=== PATIENT | male | born 1960 | race Caucasian/White ===

== ENCOUNTER 2020-03-13 18:49 | Emergency (ER) | payer BC ==
[~2020-03-13 18:49] MED LIST: Iopamidol 370 76% 100 ML VIAL ONE
[2020-03-13] MEDS ORDERED: Ketorolac Tromethamine 30 MG/ML VIAL ONE (19:04)
[2020-03-13 19:20] LABS: #Basophils 0.1 thou/uL (0.0-0.2); #Eosinphils 0.1 thou/uL (0.0-0.7); #Lymphocytes 4.3 thou/uL (1.20-3.40); #Monocytes 0.9 thou/uL (0.11-0.59); #Neutrophils 3.8 thou/uL (1.40-6.50); %Basophils 1.5 % (0.0-1.0); %Eosinophils 1.2 % (0.0-10.0); %Lymphocytes 46.5 % (21.0-51.0); %Monocytes 9.5 % (0.0-10.0); %Neutrophils 41.3 % (42.0-75.0); Hemoglobin 14.4 g/dL (14.0-18.0); Mean Corpuscular Hemoglobin 36.1 pg (27.0-31.0); Mean Platelet Volume 7.3 fL (7.4-10.4); Platelet Count 186 thou/uL (130-400); RBC Distribution Width 11.6 % (11.5-14.5); White Blood Cell (WBC) Count 9.2 thou/uL (4.8-10.8)
[2020-03-13 19:31] LABS: ALT (SGPT) 36 U/L (8-55); AST (SGOT) 27 U/L (5-34); Albumin 4.3 g/dL (3.5-5.0); Alkaline Phosphatase 44 U/L (40-110); Anion Gap 14 mmol/L (10-20); BUN (Urea Nitrogen) 18 mg/dL (8.4-25.7); Bilirubin, Total 0.4 mg/dL (0.2-1.2); Calc. Creatinine Clearance 0 mL/min (70-130); Calcium 8.3 mg/dL (7.8-10.44); Carbon Dioxide 25 mmol/L (22-29); Chloride 108 mmol/L (98-107); Estimated GFR-MDRD 62; Glucose 90 mg/dL (70-105); Potassium 3.9 mmol/L (3.5-5.1); Protein, Total 7.3 g/dL (6.0-8.3); Sodium 143 mmol/L (136-145)
[2020-03-13 19:39] LABS: MDiff Complete? YES; Macrocytosis SLIGHT = 6-15 cells (100X) (0-5/hpf); Platelet Morphology Comment Appears Adequate
[2020-03-13 20:25] LABS: Bilirubin Negative (Negative); Blood, Urine Large (Negative); Clarity Clear (Clear); Glucose, Urine (Dipstick) Negative (Negative); Ketone, Urine Negative (Negative); Leukocyte Negative (Negative); Nitrite Negative (Negative); Protein, Urine (Dipstick) Trace mg/dL (Neg-Trace); Urobilinogen 0.2 mg/dL (Less than 2); pH, Urine 5.5 (5.0-9.0)
[2020-03-13 20:27] LABS: Specific Gravity, Urine 1.035 (1.002-1.036)
[2020-03-13 20:30] LABS: Bacteria/HPF 1+ HPF (None Seen); Squamous Epithelial None Seen HPF (0-3); WBC/HPF 0-3 HPF (0-3)
--- NOTE | 2020-03-13 21:00 | CT ---
CT ABDOMEN AND PELVIS WITH AND WITHOUT CONTRAST: Date: 03-13-[address] of the abdomen and pelvis was performed for evaluation of flank pain. FINDINGS: Bilateral nonobstructing renal calculi are present, but in particular, there is a 6-7 mm stone at the left UPJ causing mild to moderate left hydronephrosis. No renal masses were seen. No stones were see n of the distal ureters or urinary bladder. The remainder of the scan is unremarkable. The lung bases are clear. The liver, spleen, pancreas, adr enal glands, gallbladder and abdominal aorta were unremarkable. The bowel shows no dilation or wall t hickening. No free air or free fluid is present. CT of the pelvis shows no pelvic masses, fluid collections or inflammatory changes. The prostate was perhaps a little generous in size. IMPRESSION: 1. 6-7 mm stone at the left ureteropelvic junction causing mild to moderate left hydronephrosis. 2. Bilateral nonobstructing renal calculi. Preliminary report called to [facility] in ER at 2000 on 03-13-2020. POS: HOME
== END 2020-03-13 20:55 | disposition home or self-care (01) ==
LOC: BURERS 18:49
DX: N13.2 Hydronephrosis with renal and ureteral calculous obstruction (principal)
CPT/HCPCS: 74178; 80053; 81003; 81015; 85025; 96374; J1885; Q9967

== ENCOUNTER 2023-04-15 10:34 | Outpatient (CLI) | payer BC | END 2023-04-15 10:35 | disposition home or self-care (01) | LOC: BURRAD 10:34 | PROVIDERS: ATTEND Urology | DX: R97.20 Elevated prostate specific antigen [PSA] (principal); N20.0 Calculus of kidney | CPT/HCPCS: 74018 ==